=== PATIENT | male | born 1995 | race African-American/Black ===

== ENCOUNTER 2019-10-05 12:00 | Emergency (ER) | payer OTHER ==
[~2019-10-05] VITALS: Ht 193 cm; Wt 74.8 kg
--- NOTE | 2019-10-05 12:37 | NUR ---
ED Nurse Note: urine sent
--- NOTE | 2019-10-05 12:37 | NUR ---
ED Nurse Note: PT CAME IN FOR STD EVAL. PT STATES HE HAD UNPROTECTED SEXUAL INTERCOURSE A MONTH AGO. ASYMPTOMATIC AT THIS TIME.
[2019-10-05 12:38] VITALS: BP 145/69
--- NOTE | 2019-10-05 13:11 | Emergency Room Report ---
History of Present Illness General Chief Complaint: Male Urogenital Problems Source: Patient Present Illness HPI 24-year-old male presents to the emergency department complaining of exposure contact with venereal disease specifically chlamydia. Patient reports he had recent unprotected intercourse with a partner that told him that she was positive for chlamydia. Patient denies any penile discharge, testicular pain or swelling. He denies abdominal pain/tenderness, joint pain, fevers or chills. Patient denies dysuria, hematuria or urinary frequency. He denies genital rashes or lesions. He denies pain. Allergies: Uncoded Allergies: LACTOSE INTOLERANCE (Allergy, Unknown, 10/05/19) Patient History Past Medical History: see triage record Past Surgical History: none Pertinent Family History: none Reviewed Nursing Documentation: PMH: Agreed; PSxH: Agreed Nursing Documentation-PMH Past Medical History: No Stated History Review of Systems All Other Systems: negative except mentioned in HPI Physical Exam Vital Signs Date Time Temp Pulse Resp B/P (MAP) Pulse Ox O2 Delivery O2 Flow Rate FiO2 10/05/19 12:25 98.1 91 20 145/69 (94) 98 Room Air Sp02 EP Interpretation: reviewed, normal General Appearance: no apparent distress, alert, GCS 15, non-toxic Head: normocephalic, atraumatic Eyes: bilateral eye normal inspection, bilateral eye PERRL ENT: hearing grossly normal, normal voice Neck: full range of motion Respiratory: lungs clear, normal breath sounds, speaking full sentences Cardiovascular #1: regular rate, rhythm Gastrointestinal: normal bowel sounds, non tender, soft Genitourinary: normal inspection, no CVA tenderness, other - genital exam is deferred. Musculoskeletal: normal range of motion, gait/station normal, non-tender Neurologic: alert, motor strength/tone normal, oriented x3, sensory intact, responsive, speech normal Psychiatric: judgement/insight normal Skin: palpation normal, normal color Lymphatic: no adenopathy Medical Decision Making PA Attestation Dr. Guevara Is my supervising Physician whom patient management has been discussed with. Diagnostic Impression: Primary Impression: Contact with or exposure to venereal diseases ER Course 24-year-old male presents to the emergency department complaining of exposure contact with venereal disease specifically chlamydia. Patient reports he had recent unprotected intercourse with a partner that told him that she was positive for chlamydia. Patient denies any penile discharge, testicular pain or swelling. He denies abdominal pain/tenderness, joint pain, fevers or chills. Patient denies dysuria, hematuria or urinary frequency. He denies genital rashes or lesions. He denies pain. Ddx considered but are not limited to UTi , Urethritis, LGV, STI, Stone, Cystitis, prostatitis Vital signs: are WNL, pt. is afebrile H&PE are most consistent with exposure/contact with venereal disease ORDERS: -None required at this time this patient will be treated prophylactically. ED INTERVENTIONS: -250mg Rocephin IM -1g Azithromycin PO DISCHARGE: At this time pt. is stable for d/c to home. Will provide printed patient care instructions, and any necessary prescriptions. Care plan and follow up instructions have been discussed with the patient prior to discharge. Last Vital Signs Date Time Temp Pulse Resp B/P (MAP) Pulse Ox O2 Delivery O2 Flow Rate FiO2 10/05/19 12:38 98.1 76 20 145/69 98 Room Air Disposition: HOME, SELF-CARE Condition: Stable Scripts No Active Prescriptions or Reported Meds Patient Instructions: Sexually Transmitted Disease, [id number] Additional Instructions: Take medications as directed. Follow up with a Primary Care Provider in 3-5 days, even if your symptoms have resolved. Return sooner to ED if new symptoms occur, or current symptoms become worse. - Please note that this Emergency Department Report was dictated using [employer] technology software, occasionally this can lead to erroneous entry secondary to interpretation by the dictation equipment. Tyesha Guardado Oct 05, 2019 13:11
[2019-10-05] MEDS ORDERED: Azithromycin 250mg tab ORAL ONE (13:15)
[2019-10-05] MEDS ORDERED: Lidocaine 1% MPF 10mg/ml 5ml INJ ONE (13:15)
[2019-10-05 13:31] VITALS: BP 113/71
--- NOTE | 2019-10-05 13:31 | NUR ---
ER DISCHARGE NOTE: Patient is cleared to be discharged per ERMD, pt is aox4, on room air, with stable vital signs. pt was given dc instructions, pt was able to verbalize understanding, pt id bandremoved pt is able to ambulate with steady gait. pt took all belongings.
== END 2019-10-05 14:00 | disposition home or self-care (01) ==
LOC: EMR 13:30
DX: Z20.2 Contact with and (suspected) exposure to infections with a predominantly sexual mode of transmission (principal); Z91.011 Allergy to milk products
CPT/HCPCS: 96372; 96374; 99284; J0696